=== PATIENT | male | born 1945 | race Caucasian/White ===

== ENCOUNTER 2018-12-15 11:04 | Day surgery (SDC) | payer MEDICARE, BC ==
[~2018-12-15] VITALS: Ht 182.9 cm; Wt 74.1 kg
[~2018-12-15 11:04] MED LIST: CELEBREX; MULTIVITAMINS; magnesium oxide
[2018-12-15 11:58] VITALS: Ht 182.9 cm; Wt 74.1 kg
[2018-12-15 12:25] VITALS: BP 129/63; PULSE 74; RESP 20
[2018-12-15] MEDS ORDERED: PROPOFOL 200 MG INJ ONE (13:00)
[2018-12-15] MEDS ORDERED: LIDOCAINE 2% (SDV) 5 ML INJ ONE (13:00)
--- NOTE | 2018-12-15 13:21 | PREAC ---
Date/Time of Note Date/Time of Note DATE: 12/15/18 TIME: :19 Anesthesia Eval and Record Evaluation Time Pre-Procedure Interview DATE: 12/15/18 TIME: 13:19 Age 73 Sex male NPO: 8 hrs Preoperative diagnosis Abdominal pain GERD Planned procedure EGD colonoscopy Past Medical History Past Medical History: Includes Cardio: Dyslipidemia Neuro: Peripheral neuropathy Musculoskeletal: Osteoarthritis Surgery & Anesthesia Issues No known issue Meds Anticoagulation: No Beta Farnck within 24 hr: No Reason Beta Franck not given: Pt. not on B-Franck Reported Medications [Celebrex] No Conflict Check 12/15/18 [Multivitamins] No Conflict Check 12/15/18 [magnesium oxide] No Conflict Check 12/15/18 Meds reviewed: Yes Allergies Coded Allergies: No Known Allergy (Unverified , 12/15/18) Allergies Reviewed: Yes Labs/Studies Labs Reviewed: Reviewed by anesthesiologist test: N/A Pre-procedure Exam Last vitals Vital Signs Date Temp Pulse Resp B/P (MAP) Pulse Ox O2 O2 Flow FiO2 Time Delivery Rate 12/15/18 97.9 74 20 129/63 100 Room Air 12:25 (85) Airway: Adequate mouth opening Mallampati: Mallampati I Teeth: Normal Lung: Normal Heart: Normal ASA Physical Status ASA physical status: 2 Emergency: None Planned Anesthetic General/MAC: MAC Planned Pain Management Parenteral pain med Pre-operative Attestations Prior to commencing anesthesia and surgery, the patient was re-evaluated, there was verification of: *The patient's identity *The results of appropriate recent lab work and preoperative vital signs *The above evaluation not changing prior to induction *Anesthetic plan, risk benefits, alternative and complications discussed with patient/family; questions answered; patient/family understands, accepts and wishes to proceed. NICK CORREIA MD Dec 15, 2018 13:20
[2018-12-15] MEDS ORDERED: LIDOCAINE 2% JELLY 5 ML ONE ×2 (13:22→14:06)
--- NOTE | 2018-12-15 14:41 | PAC ---
Date/Time of Note Date/Time of Note DATE: 12/15/18 TIME: 14:40 Post-Anesthesia Notes Post-Anesthesia Note Last documented vital signs Vital Signs Date Temp Pulse Resp B/P (MAP) Pulse Ox O2 O2 Flow FiO2 Time Delivery Rate 12/15/18 97.9 74 20 129/63 100 Room Air 12:25 (85) Activity: WNL Respiratory function: WNL Cardiovascular function: WNL Mental status: Baseline Pain reasonably controlled: Yes Hydration appropriate: Yes Nausea/Vomiting absent: Yes Comments BP: 120/59, HR:81, SpO2:99, RR: 14, BT: 98.3 NICK CORREIA MD Dec 15, 2018 14:41
== END 2018-12-15 15:58 | disposition home or self-care (01) ==
LOC: EEVIPCON 11:04 → GIL 11:04
PROVIDERS: ATTEND Internal Medicine
DX: Z12.11 Encounter for screening for malignant neoplasm of colon (principal); K64.0 First degree hemorrhoids; K57.31 Diverticulosis of large intestine without perforation or abscess with bleeding; K29.00 Acute gastritis without bleeding; E78.5 Hyperlipidemia, unspecified; M19.90 Unspecified osteoarthritis, unspecified site
CPT/HCPCS: 88305; 88312